=== PATIENT | female | born 1995 | race Caucasian/White ===

== ENCOUNTER 2022-08-29 08:01 | Outpatient (CLI) | payer MEDICAID, SELFPAY | END 2022-08-29 08:02 | disposition home or self-care (01) | LOC: AMB 09-07 19:18 | PROVIDERS: Visit Provider Internal Medicine | DX: E11.10 Type 2 diabetes mellitus with ketoacidosis without coma (principal); U07.1 COVID-19; R53.1 Weakness; K92.1 Melena | CPT/HCPCS: A0425; A0426 ==